=== PATIENT | male | born 1990 | race Caucasian/White ===

== ENCOUNTER 2020-09-28 17:28 | Emergency (ER) | payer OTHER, SELFPAY ==
--- NOTE | ~2020-09-28 | XR_ITS ---
EXAMINATION: XR SHOULDER, RIGHT CLINICAL INFORMATION: Right shoulder injury COMPARISON: None TECHNIQUE: AP external rotation, Grashey, scapular Y, and axillary views of the right shoulder. FINDINGS: Visualized portion of the proximal right humerus demonstrates no fracture. Humeral head demonstrates good articulation with the glenoid fossa. Acromioclavicular joint is unremarkable. Visualized right-sided ribs and lung parenchyma are unremarkable. Visualized right-sided ribs and lung parenchyma are unremarkable. XR/XR shoulder RT min 2V IMPRESSION: Unremarkable radiographs of the right shoulder.
--- NOTE | ~2020-09-28 | XR_ITS ---
EXAMINATION: XR TIBIA AND FIBULA, LEFT CLINICAL INFORMATION: Fall with trauma COMPARISON: None TECHNIQUE: AP and lateral views of the left tibia and fibula were obtained. FINDINGS: The bones and soft tissues are normal. No fracture. No osseous lesions. 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 XR/XR tibia fibula LT 2V IMPRESSION: Normal left tibia and fibula.
[2020-09-28 19:18] VITALS: BP 123/69; PULSE 72; RESP 16; TEMP 36.7; O2SAT 98; BMI 32.1
--- NOTE | 2020-09-28 19:50 | ED_ITS ---
HPI - Extremity Problem General Chief complaint: Extremity Injury, Upper Stated complaint: fall work inj Time Seen by Provider: 09/28/20 19:50 Source: patient Mode of arrival: ambulatory Limitations: no limitations History of Present Illness HPI Narrative: fell between truck and loading dock, fell 2 feet down injuring left leg and right shoulder Complaint: extremity pain and extremity swelling Onset (ago): hour(s) (10 hours) Pain Consistency: constant Location: left, right, upper extremity and lower extremity Radiation: none Relieving factors: nothing Associated symptoms: denies other symptoms Related Data Previous Rx's Medication Instructions Recorded naproxen [Naprosyn] 500 mg PO BID #20 tab 09/28/20 Allergies Allergy/AdvReac Type Severity Reaction Status Date / Time No Known Allergies Allergy Verified 09/28/20 19:38 Review of Systems Constitutional: Constitutional: Reports no additional constitutional complaints Eyes: Eyes: Reports no additional eye complaints ENT: Denies dizziness Cardiovascular: Cardiovascular: Reports no additional cardiovascular complaints Respiratory: Respiratory: Reports as per HPI Gastrointestinal: Gastrointestinal: Reports no additional gastrointestinal complaints Musculoskeletal: Musculoskeletal: Reports no additional musculoskeletal complaints Integumentary/Breasts: Skin/Breast: Denies rash Neurologic: Reports system reviewed and no additional complaints, except as documented, Denies dizziness and Denies Sensory deficit (Neuro) Psychiatric: Psychiatric: Denies anxiety PMFSH Past Medical History Medical History No known health problems Social History Social History Smoked in Last 30 Days: No Use of substances other than those prescribed or required for medical reasons: Yes Substance Use Type: Marijuana Advance Directives: No Advance Directives Information Provided: No Physical Exam 2 Vital Signs: Vital Signs: Last Vital Signs Temp 98.0 F 09/28/20 19:18 Pulse 72 09/28/20 19:18 Resp 16 09/28/20 19:18 BP 123/69 09/28/20 19:18 Pulse Ox 98 09/28/20 19:18 Body Mass Index 32.1 Const: General: healthy appearing Nutritional Appearance: average body habitus Orientation/consciousness: oriented to person and patient oriented x3 Limitations: no limitations HENMT: Head: Yes normal to inspection Ears: external ears normal General nose exam: Normal external nose present Mouth: Normal oral and palatal mucosa present and oropharynx normal Throat: Yes posterior oropharynx normal Eyes: General: appearance normal, both eyes and all related structures Neck: Other: supple Neck: Yes normal visual inspection Chest: Chest palpation & inspection: normal inspection of the chest Resp: Auscultation: clear to auscultation bilaterally Cardio: Jugular venous distension: no JVD Rate: regular rate Rhythm: regular rhythm Heart sounds: S1 normal heart sound present and S2 normal heart sound present GI: Inspection: Yes normal to inspection Palpation (GI): Soft to palpation, nontender and No hepatosplenomegaly present Auscultation: normal bowel sounds : General: Yes no CVA tenderness Back/Spine/Pelvis: Back: no CVA tenderness Skin: Other: abrasion and ecchymosis to left lower extremity Neuro: General: oriented to person and patient oriented x3 Cranial nerves: Yes CN's II-XII intact bilaterally Motor exam (neuro): 5/5 motor strength present throughout Sensory Exam: No Sensory deficit (Neuro) Extrem: Other: right shoulder with no deformity, clavicle normal, FROM. left lower tibia with swelling ecchymosis Psych: Appearance: grossly normal Course Course Course Narrative: no fractures no evidence of compartment syndrome will dc on NSAIDS MDM - Extremity (Nontraumatic) Imaging Data right shoulder: Radiologist's impression: no fracture or dislocation left tibia: My impression: no fracture Discharge Plan Discharge Clinical Impression: Shoulder contusion Qualifiers: Encounter type: initial encounter Laterality: right Qualified Code(s): S40.011A - Contusion of right shoulder, initial encounter Left leg injury Qualifiers: Encounter type: initial encounter Qualified Code(s): S89.92XA - Unspecified injury of left lower leg, initial encounter Patient Disposition: Home, Self-Care Instructions: Shoulder Sprain (ED), Leg Pain (ED) Additional Instructions: ice 20 minutes off and on Prescriptions: New naproxen [Naprosyn] 500 mg tablet 500 mg PO BID Qty: 20 RF: 0 Referrals: Physician,None [Primary Care Provider] - 1 week
== END 2020-09-28 20:29 | disposition home or self-care (01) ==
PROVIDERS: Emergency Provider Emergency Medicine
DX: S40.011A Contusion of right shoulder, initial encounter (principal); S89.92XA Unspecified injury of left lower leg, initial encounter; W17.89XA Other fall from one level to another, initial encounter; Y93.9 Activity, unspecified; Y92.9 Unspecified place or not applicable; Y99.9 Unspecified external cause status
CPT/HCPCS: 73030; 73590; 99283; 99284

== ENCOUNTER 2021-06-26 15:28 | Emergency (ER) | payer SELFPAY ==
--- NOTE | ~2021-06-26 | CT_ITS ---
EXAMINATION: CT ABDOMEN AND PELVIS WITH CONTRAST CLINICAL INFORMATION: Bright red rectal bleeding. COMPARISON: None. TECHNIQUE: Multidetector volumetric images were obtained from the superior aspect of the liver through the pubic symphysis following administration 85 mL of Omnipaque 350 intravenous contrast. Sagittal and coronal reformatted images were obtained on the technologist's workstation. Oral contrast: No This CT examination was performed using dose optimization techniques as appropriate, variously including the following: *Automated exposure control *Adjustment of mA and/or kV according to patient size (this includes techniques or standardized protocols for targeted exams where dose is matched to indication/reason for exam; i.e. extremities or head) *Use of iterative reconstruction technique DLP: 745 mGy-cm FINDINGS: LUNG BASES: No focal consolidation or pleural effusion. Evaluation of small pulmonary nodules is limited due to motion. LIVER, GALLBLADDER, AND BILIARY TREE: The liver is normal in size, shape, and attenuation. No focal hepatic lesion or biliary ductal dilatation is present. The gallbladder is unremarkable with no evidence of radiopaque gallstones, gallbladder wall thickening, or obvious pericholecystic inflammatory changes. PANCREAS: Unremarkable. SPLEEN: Unremarkable. ADRENAL GLANDS: Unremarkable. KIDNEYS AND URETERS: The kidneys are normal in size, shape, and attenuation. No hydronephrosis, hydroureter, or calculi seen. No perinephric stranding. BLADDER: Unremarkable. GASTROINTESTINAL TRACT: The stomach and the small bowel are nondilated. There is mild submucosal fatty deposition in the distal ileum, terminal ileum and ascending colon suggesting the presence of a chronic inflammatory process. There is however, no current significant associated inflammatory changes to suspect an acute process. The majority of the colon is underdistended which limits assessment of wall thickening and GI bleeding. However, accounting for these limitations, no definite pooling of contrast is identified to suspect an active bleeding. A few areas of hyperattenuating content in the colon and within a few diverticuli are nonspecific in the absence of a noncontrast examination and could represent ingested debris. No bowel obstruction. Diffuse colonic diverticulosis. Normal appendix. ABDOMINAL WALL: No significant hernia is appreciated. LYMPH NODES: Normal. VASCULAR: Unremarkable. PELVIC VISCERA: Nonspecific prostatic calcifications. OSSEOUS STRUCTURES: No acute or aggressive appearing osseous abnormalities. CT/CT abdomen pelvis w con IMPRESSION: No definite gastrointestinal bleeding. However, evaluation is limited as the majority of the colon and rectum are underdistended and in the absence of a dry scan. If indicated, correlation with a colonoscopy is recommended. Colonic diverticulosis but without evidence of acute diverticulitis. Submucosal fatty deposition in the distal ileum, terminal ileum and ascending colon is nonspecific and could be associated with the patient body habitus or a chronic inflammatory process.
[2021-06-26 15:53] VITALS: BP 156/74; PULSE 75; RESP 19; TEMP 36.6; O2SAT 98; BMI 32.8
[2021-06-26 16:08] LABS: MANUAL DIFF FLAG NO
[2021-06-26 16:18] LABS: Basophils Absolute Auto 0.1 X10*3/uL (0.0-0.2); Basophils Percent Auto 0.6 % (0-2); Eosinophils Absolute Auto 0.1 X10*3/uL (0.0-0.4); Eosinophils Percent Auto 1.2 % (0-4); Hematocrit 44.1 % (42.0-52.0); Hemoglobin 14.9 g/dl (14.0-18.0); Imm Gran Abs Auto 0.03 X10*3/uL (0.00-0.03); Imm Gran Pct Auto 0.4 % (0.0-0.4); Lymphocytes Absolute Auto 2.4 X10*3/uL (1.2-4.9); Lymphocytes Percent Auto 29.2 % (20-40); Mean Corpuscular HGB Conc 33.8 g/dl (31.0-36.0); Mean Corpuscular Hemoglobin 26.9 pg (27.0-33.0); Mean Corpuscular Volume 79.6 fL (80.0-98.0); Mean Platelet Volume 9.5 fL (9.4-12.4); Monocytes Absolute Auto 0.5 X10*3/uL (0.1-1.2); Monocytes Percent Auto 6.4 % (2-11); Neutrophils Percent Auto 62.2 % (45-73); Platelet Count 279 X10*3/uL (160-400); Red Blood Count 5.54 X10*6/uL (4.60-5.80); White Blood Count 8.1 X10*3/uL (4.8-10.8)
[2021-06-26 16:26] LABS: Anion Gap 11 (12-20); Blood Urea Nitrogen 13 mg/dL (9-16); Carbon Dioxide 29 mmol/L (22-29); Chloride 103 mmol/L (96-108); Creatinine Clr Calc Pharmacy 150.7; Estimated Glomerular Filt Rate > 60; Glucose Random 99 mg/dL (60-115); Sodium 139 mmol/L (135-145)
--- NOTE | 2021-06-26 18:02 | ED_ITS ---
HPI - GI Bleed General Chief complaint: GI Bleed <Elvie Hull CNP - Last Filed: 06/26/21 18:43> Stated complaint: Rectal bleeding <Elvie Hull CNP - Last Filed: 06/26/21 18:43> Time Seen by Provider: 06/26/21 17:39 <Elvie Hull CNP - Last Filed: 06/26/21 18:43> Source: patient <Elvie Basiajillian Hull CNP - Last Filed: 06/26/21 18:43> Mode of arrival: ambulatory <Elvie Hull CNP - Last Filed: 06/26/21 18:43> Limitations: no limitations <Elvie Hull CNP - Last Filed: 06/26/21 18:43> History of Present Illness HPI Narrative: Patient is a 31-year-old male with no significant past medical history. He reports a few days noting painless bright red blood on the toilet tissue after wiping, and small amount of blood in the toilet bowl. He denies this ever happening in the past. Denies any history of hemorrhoids, IBS, IBD, personal or family history of colon cancer, blood thinning medication. Denies fevers, chills, nausea, vomiting, abdominal pain, dysuria urinary frequency/urgency of the. Denies rectal intercourse or insertion of objects into the rectum. <Elvie Hull CNP - Last Filed: 06/26/21 18:43> MD complaint: blood on toilet paper <Elvie Hull CNP - Last Filed: 06/26/21 18:43> Onset (ago): day(s) <Elvie Hull CNP - Last Filed: 06/26/21 18:43> Pain Consistency: intermittent <Elvie Hull CNP - Last Filed: 06/26/21 18:43> Related Data Home medications: Previous Rx's Medication Instructions Recorded naproxen 500 mg tablet (Naprosyn) 500 mg PO BID #20 tab 09/28/20 pramoxine 1 % topical foam 1 appl AK BID #15 g 06/26/21 (Proctofoam) <Elvie Hull CNP - Last Filed: 06/26/21 18:43> Allergies/Adverse reactions: Allergies Allergy/AdvReac Type Severity Reaction Status Date / Time No Known Allergies Allergy Verified 09/28/20 19:38 <Elvie Hull CNP - Last Filed: 06/26/21 18:43> Review of Systems Review of Systems: Constitutional : No Weight loss, No Fever, No Chills ENT/Mouth :? No sore throat, No Rhinorrhea Eyes: No Swelling, No Redness Cardiovascular : No Chest Pain, No SOB, No Edema Respiratory : No Cough, No Sputum, No Wheezing Gastrointestinal : No Nausea, no Vomiting, no Diarrhea, no abdominal pain, No Hematochezia, No Melena Genitourinary : No Dysuria, No Urinary Frequency, No Hematuria, No Urgency? Musculoskeletal : No joint pain, No Myalgias, No Joint Swelling Skin : No Skin Lesions, No rash Neuro : No Weakness, No Numbness, No Dizziness, No Headache Psych : No Anxiety/Panic, No Depression Heme/Lymph: No Bruising, No Lymphadenopathy Endocrine : No Polyuria, No Polydipsia All other systems reviewed and are negative. <Elvie Hull CNP - Last Filed: 06/26/21 18:43> PMFSH Past Medical History Attestation statement: The following information was validated with the patient. <Elvie Hull CNP - Last Filed: 06/26/21 18:43> Source: old records reviewed <Elvie Hull CNP - Last Filed: 06/26/21 18:43> Medical History: Medical History No known health problems <Elvie Hull CNP - Last Filed: 06/26/21 18:43> Social History Social History: Social History Substance Use Type: Marijuana Advance Directives: No Advance Directives Information Provided: No <Elvie Hull CNP - Last Filed: 06/26/21 18:43> Physical Exam Vital Signs: Vital Signs: Last Vital Signs Temp 98 F 06/26/21 15:53 Pulse 75 06/26/21 15:53 Resp 19 06/26/21 15:53 BP 156/74 H 06/26/21 15:53 Pulse Ox 98 06/26/21 15:53 BMI result Body Mass Index 32.8 Vital signs have been reviewed and appeared to be correct. Blood pressure is elevated 156/74. Heart rate normal.? Respiration rate normal. Temperature chris l.? Oxygen saturation normal. <Elvie Hull CNP - Last Filed: 06/26/21 18:43> Vital Signs: Last Vital Signs Temp 98 F 06/26/21 15:53 Pulse 75 06/26/21 15:53 Resp 19 06/26/21 15:53 BP 156/74 H 06/26/21 15:53 Pulse Ox 98 06/26/21 15:53 BMI result Body Mass Index 32.8 <AMERICO Garcia - Last Filed: 06/26/21 19:44> Appearance: Alert.?Oriented to person, place and time. No acute distress.?Normal affect. Eyes: Pupils equal, round and reactive to light.? ENT: Pharynx normal.?? Neck: Normal inspection.? Neck supple.?? CVS: Heart sounds normal. Normal heart rate and rhythm.? Pulses normal.?? Respiratory: No respiratory distress.? Lung sounds clear to auscultation bilaterally?? Abdomen: Soft and non-tender. Normoactive bowel sounds. No pulsatile mass.? Rectum: ?Rectal exam performed with NICOL Dick, no external hemorrhoids visualized, no fissure, no palpable internal hemorrhoids, no stool in the rectum to obtain for occult testing. Skin: Skin warm and dry.? Normal skin color.? Normal skin turgor.?? Extremities: No lower extremity edema.? Neuro: Moves all extremities spontaneously. Sensation intact bilaterally. CN II- XII intact. No focal neuro deficits. Ambulates with normal steady gait. <Elvie Hull CNP - Last Filed: 06/26/21 18:43> Course Course Course Narrative: Patient is a 31-year-old male with painless bright red blood per rectum. Patient has no abdominal pain, or peritoneal signs, not consistent with appendicitis, diverticulitis, testicular torsion, enteric ischemia, hernia, instruction. Given rectal bleeding of GI perforation lower GI bleed are possible, as there are no hemorrhoids or fissures on exam, will obtain CT of the abdomen for further evaluation. He had labs obtained in triage reveal a stable hemoglobin and hematocrit of 14.9 and 44.1 respectively, platelet counts are normal. Chemistries are normal. <Elvie Hull CNP - Last Filed: 06/26/21 18:43> Reevaluation(s) Reevaluation #1: Patient signed out to Julia DRISCOLL, pending results of abdominal CT. <Elvie Hull CNP - Last Filed: 06/26/21 18:43> Reevaluation #2: Patient's abdominal CT with no acute findings unable to pinpoint reason for patient's GI bleeding. Other finding this includes diverticulosis, and subm ucosal fatty deposition in the distal ileum, terminal ileum and ascending colon. Advised patient to follow-up with GI. Return with new or worsening symptoms. Outlined worrisome signs and symptoms on patient's discharge. Comfortable with discharge <AMERICO Garcia - Last Filed: 06/26/21 19:44> MDM - GI Bleed Medical Records Attestation: I reviewed the patient's medical records. <Elvie Hull CNP - Last Filed: 06/26/21 18:43> Lab Data Attestation: I reviewed the patient's lab results. <Elvie Hull CNP - Last Filed: 06/26/21 18:43> Result diagrams: : 06/26/21 16:01 06/26/21 16:01 <Elvie Hull CNP - Last Filed: 06/26/21 18:43> Labs: Lab Results 06/26/21 06/26/21 Range/Units 16:01 16:01 WBC 8.1 (4.8-10.8) X10*3/uL RBC 5.54 (4.60-5.80) X10*6/uL Hgb 14.9 (14.0-18.0) g/dl Hct 44.1 (42.0-52.0) % MCV 79.6 L (80.0-98.0) fL MCH 26.9 L (27.0-33.0) pg MCHC 33.8 (31.0-36.0) g/dl RDW 13.0 (11.0-16.0) % Plt Count 279 (160-400) X10*3/uL MPV 9.5 (9.4-12.4) fL Immature Gran % (Auto) 0.4 (0.0-0.4) % Neut % (Auto) 62.2 (45-73) % Lymph % (Auto) 29.2 (20-40) % Reynolds % (Auto) 6.4 (2-11) % Eos % (Auto) 1.2 (0-4) % Baso % (Auto) 0.6 (0-2) % Lymph # (Auto) 2.4 (1.2-4.9) X10*3/uL Reynolds # (Auto) 0.5 (0.1-1.2) X10*3/uL Eos # (Auto) 0.1 (0.0-0.4) X10*3/uL Baso # (Auto) 0.1 (0.0-0.2) X10*3/uL Abs Immat Gran (auto) 0.03 (0.00-0.03) X10*3/uL Absolute Neuts (auto) 5.0 (2.0-8.3) x10*3/uL Absolute Nucleated RBC 0.000 (0.0-0.012) X10*3/uL Nucleated RBC % (auto) 0.0 (0.0-0.2) /100WBC Sodium 139 (135-145) mmol/L Potassium 4.0 (3.3-5.1) mmol/L Chloride 103 (96-108) mmol/L Carbon Dioxide 29 (22-29) mmol/L Anion Gap 11 L (12-20) BUN 13 (9-16) mg/dL Creatinine 0.89 (0.5-1.4) mg/dL Estim Creat Clear Calc 150.7 Estimated GFR > 60 Random Glucose 99 (60-115) mg/dL Calcium 10.0 (8.4-10.2) mg/dL <Elvie Hull, IHSAN - Last Filed: 06/26/21 18:43> Lab Results 06/26/21 06/26/21 Range/Units 16:01 16:01 WBC 8.1 (4.8-10.8) X10*3/uL RBC 5.54 (4.60-5.80) X10*6/uL Hgb 14.9 (14.0-18.0) g/dl Hct 44.1 (42.0-52.0) % MCV 79.6 L (80.0-98.0) fL MCH 26.9 L (27.0-33.0) pg MCHC 33.8 (31.0-36.0) g/dl RDW 13.0 (11.0-16.0) % Plt Count 279 (160-400) X10*3/uL MPV 9.5 (9.4-12.4) fL Immature Gran % (Auto) 0.4 (0.0-0.4) % Neut % (Auto) 62.2 (45-73) % Lymph % (Auto) 29.2 (20-40) % Reynolds % (Auto) 6.4 (2-11) % Eos % (Auto) 1.2 (0-4) % Baso % (Auto) 0.6 (0-2) % Lymph # (Auto) 2.4 (1.2-4.9) X10*3/uL Reynolds # (Auto) 0.5 (0.1-1.2) X10*3/uL Eos # (Auto) 0.1 (0.0-0.4) X10*3/uL Baso # (Auto) 0.1 (0.0-0.2) X10*3/uL Abs Immat Gran (auto) 0.03 (0.00-0.03) X10*3/uL Absolute Neuts (auto) 5.0 (2.0-8.3) x10*3/uL Absolute Nucleated RBC 0.000 (0.0-0.012) X10*3/uL Nucleated RBC % (auto) 0.0 (0.0-0.2) /100WBC Sodium 139 (135-145) mmol/L Potassium 4.0 (3.3-5.1) mmol/L Chloride 103 (96-108) mmol/L Carbon Dioxide 29 (22-29) mmol/L Anion Gap 11 L (12-20) BUN 13 (9-16) mg/dL Creatinine 0.89 (0.5-1.4) mg/dL Estim Creat Clear Calc 150.7 Estimated GFR > 60 Random Glucose 99 (60-115) mg/dL Calcium 10.0 (8.4-10.2) mg/dL <AMERICO Garcia - Last Filed: 06/26/21 19:44> Discharge Plan Discharge Clinical Impression: Bright red rectal bleeding, Diverticulosis <Elvie Hull CNP - Last Filed: 06/26/21 18:43> Patient Disposition: Home, Self-Care <Elvie Hull CNP - Last Filed: 06/26/21 18:43> Instructions: Gastrointestinal Bleeding (ED), Rectal Bleeding (ED) <Elvie Hull CNP - Last Filed: 06/26/21 18:43> Additional Instructions: Take your medications as prescribed. If you were prescribed antibiotics t [place], it is important that you take your medication to their entirety, do not skip any doses, do not finish them early. Follow-up with your primary care provider this week. Follow-up with GI. Return to the emergency department with new or worsening symptoms. Such as fevers, chills, chest pain, shortness of breath, nausea, vomiting, dizziness, headache, vision changes, lethargy, worsening rectal bleeding or hemorrhaging In case of emergency call 911 Your labs are reassuring CT/CT abdomen pelvis w con IMPRESSION: No definite gastrointestinal bleeding. However, evaluation is limited as the majority of the colon and rectum are underdistended and in the absence of a dry scan. If indicated, correlation with a colonoscopy is recommended. ? Colonic diverticulosis but without evidence of acute diverticulitis. ? Submucosal fatty deposition in the distal ileum, terminal ileum and ascending colon is nonspecific and could be associated with the patient body habitus or a chronic inflammatory process. ? ? <Elvie Hull CNP - Last Filed: 06/26/21 18:43> Prescriptions: New pramoxine [Proctofoam] 1 % foam 1 appl [place] BID Qty: 15 0RF No Action naproxen [Naprosyn] 500 mg tablet 500 mg PO BID Qty: 20 0RF <Elvie Hull CNP - Last Filed: 06/26/21 18:43> Referrals: Aries Soto [Physician] - 1 week Physician,None [Primary Care Provider] - 2 days <Elvie Hull CNP - Last Filed: 06/26/21 18:43> Stand Alone Forms: Work/School Release <Elvie Hull CNP - Last Filed: 06/26/21 18:43>
[2021-06-26] MEDS: iohexoL 350 MG/ML 100 ML INFUS..BTL IV (19:01)
== END 2021-06-26 20:48 | disposition home or self-care (01) ==
PROVIDERS: Emergency Provider Emergency Medicine
DX: K62.5 Hemorrhage of anus and rectum (principal); K57.90 Diverticulosis of intestine, part unspecified, without perforation or abscess without bleeding
CPT/HCPCS: 36415; 74177; 80048; 85025; 99284; Q9967

== ENCOUNTER 2022-03-10 08:31 | Outpatient (REF) | payer BC, SELFPAY ==
[2022-03-10 11:09] LABS: MANUAL DIFF FLAG NO
[2022-03-10 11:15] LABS: Basophils Percent Auto 0.4 % (0-2); Eosinophils Absolute Auto 0.1 X10*3/uL (0.0-0.4); Eosinophils Percent Auto 1.4 % (0-4); Hematocrit 46.3 % (42.0-52.0); Hemoglobin 15.2 g/dl (14.0-18.0); Imm Gran Abs Auto 0.06 X10*3/uL (0.00-0.03); Imm Gran Pct Auto 0.8 % (0.0-0.4); Lymphocytes Absolute Auto 2.4 X10*3/uL (1.2-4.9); Lymphocytes Percent Auto 32.4 % (20-40); Mean Corpuscular HGB Conc 32.8 g/dl (31.0-36.0); Mean Corpuscular Hemoglobin 26.5 pg (27.0-33.0); Mean Corpuscular Volume 80.8 fL (80.0-98.0); Mean Platelet Volume 10.3 fL (9.4-12.4); Monocytes Absolute Auto 0.6 X10*3/uL (0.1-1.2); Monocytes Percent Auto 7.6 % (2-11); Neutrophils Absolute Auto 4.2 x10*3/uL (2.0-8.3); Neutrophils Percent Auto 57.4 % (45-73); Platelet Count 317 X10*3/uL (160-400); Red Blood Count 5.73 X10*6/uL (4.60-5.80); Red Cell Distribution Width 12.9 % (11.0-16.0); White Blood Count 7.3 X10*3/uL (4.8-10.8)
[2022-03-10 11:27] LABS: Appearance Urine Clear; Color Urine Yellow; Glucose Urine UA Negative (Negative); Leukocyte Esterase Urine Negative (Negative); Nitrite Urine Negative (Negative); PH 5.5 (5.0-9.0); Specific Gravity - Urine 1.025 (1.005-1.025); Urine Blood Negative (Negative); Urine Ketones Negative (Negative); Urine Protein Negative (Neg-Trace)
[2022-03-10 11:35] LABS: Alanine Aminotransferase 38 U/L (0-40); Albumin Level 4.5 g/dL (3.5-5.0); Alkaline Phosphatase 82 U/L (39-117); Anion Gap 16 (12-20); Aspartate Amino Transferase 21 U/L (5-37); Bilirubin Total 0.5 mg/dL (0.0-1.0); Blood Urea Nitrogen 11 mg/dL (9-16); Calcium 9.5 mg/dL (8.4-10.2); Carbon Dioxide 25 mmol/L (22-29); Chloride 105 mmol/L (96-108); Cholesterol 159 mg/dL; Estimated Glomerular Filt Rate > 60; Glucose Fasting 97 mg/dL (60-99); HDL Cholesterol 49 mg/dL; LDL Cholesterol Calculated 94 mg/dl; Potassium 4.5 mmol/L (3.3-5.1); Sodium 141 mmol/L (135-145); Total Protein 7.4 g/dL (6.5-8.0); Triglycerides 81 mg/dL
[2022-03-10 11:59] LABS: TSH reflex Free T4 0.83 uIU/mL (0.32-4.0)
== END 2022-03-10 08:32 | disposition home or self-care (01) ==
LOC: HO.HMGCLDS 08:31
PROVIDERS: PCP Nurse Practitioner Family; Visit Provider Nurse Practitioner Family
DX: Z00.00 Encounter for general adult medical examination without abnormal findings (principal)
CPT/HCPCS: 36415; 80053; 80061; 81003; 84443; 85025

== ENCOUNTER 2023-05-06 15:16 | Outpatient (AMB) | payer BC, SELFPAY ==
[2023-05-06 15:18] VITALS: BP 126/74; PULSE 78; TEMP 37.2; O2SAT 99
--- NOTE | 2023-05-06 15:18 | MHC.OFFWIV ---
Intake Vital Signs 05/06/23 15:18 Height 5 ft 11 in BP 126/74 Blood Pressure Location Rt brachial Position Sitting Pulse 78 Pulse Source Pulse Oximeter Temp 98.9 F Temp Source Oral Pulse Oximetry (%) 99 Intake Visit Reasons: EST/abd cramps (lobby masked) Intake Note: pt is here for c.o abd pain,cramping, diarrhea since saturday Patient Tobacco Use Status: Current everyday Tobacco user Allergies sertraline Adverse Reaction (Intermediate, Verified 05/06/23 15:19) Drowsy Do you need a note to return to daycare/school/sports/work: Yes HPI HPI Comments History of Present Illness Details Patient presents to the walkin clinic with complaints of diarrhea for 3 days, abdominal cramping for 3 days Diarrhea started after patient ate a breakfast sandwich from a gas station Patient reports cramping of abdomen for last 3 days Vomited once yesterday after eating, states thinks he ate too much ate soup today and tolerated well has been keeping fluids down, voiding without difficulty reports watery diarrhea, about 4 times daily denies blood in stool, urine or vomit denies sharp, stabbing or severe abd pain. cramping and some tenderness without pinpoint tenderness denies chest pain, palpitations, weakness, dizziness or syncope PFSH Medical History No known health problems Social History Housing: Apartment Patient Tobacco Use Status: Current everyday Tobacco user Cigarettes Per Day: 15 e-Cigarette/Vaping Use: Never Used Second Hand Smoke Exposure: No Substance Use Type: Marijuana service: No Current occupational status: employed Current occupation: [employer] Current occupational exposures/hazards: No Cognitive needs: No Hearing needs: No Vision needs: No Review of Systems Const All systems reviewed & are unremarkable except as noted in HPI and below Physical Exam Vital Signs: Last Vital Signs Temp 98.9 F 05/06/23 15:18 Pulse 78 05/06/23 15:18 BP 126/74 05/06/23 15:18 Pulse Ox 99 05/06/23 15:18 General: awake, alert, oriented. Answers questions appropriately. Fully engaged in examination. Skin: warm, dry, intact HEENT: Normocephalic. Hearing intact. oral mucosa moist Cardiac: External chest normal in appearance. Respiratory: No cough, audible wheezing or stridor. Abdomen: without gross distension. no guarding. nontender to palpation in all quadrants MS: No obvious swelling or deformities. Neurological: Oriented to person, place, time and situation. Thought process intact. No gait abnormalities appreciated. Psychiatric: Appropriate mood and affect. Good judgment and insight. Assessment & Plan Assessment & Plan (1) Diarrhea: Code(s): R19.7 - Diarrhea, unspecified (2) Abdominal cramping: Code(s): R10.9 - Unspecified abdominal pain Plan patient presented to the walkin for 3 days of diarrhea with abd cramping denies acute abdominal pain or pinpoint tenderness. Tolerating po fluids and light meals. Simethicone 180mg po bid for abd discomfort/bloating Advised to drink plenty of fluids, advance diet as tolerated Avoid antidiarrhea medications at this time Patient declines nausea medications Work note provided Patient advised to seek treatment in ER for any worse or concerning symptoms. May need further eval with imaging/CT/US, IV fluids or medications if symptoms persist or worsen. He is not interested in going to the ER now but agrees to seek emergent treatment if needed. All questions and concerns were addressed, patient agrees with plan. Medications: New simethicone 180 mg PO BID PRN 14 caps 0RF abdominal distention Coding Level of Care Code Est Pt Level 4 (40783) Diagnoses Diarrhea R19.7 Abdominal cramping R10.9
== END 2023-05-06 16:18 | disposition home or self-care (01) ==
PROVIDERS: PCP Nurse Practitioner Family; Visit Provider Registered Nurse Emergency
DX: R19.7 Diarrhea, unspecified (principal); R10.9 Unspecified abdominal pain
CPT/HCPCS: 99213

== ENCOUNTER 2023-05-07 08:43 | Observation (INO) | payer BC, SELFPAY ==
--- NOTE | ~2023-05-07 | CT_ITS ---
EXAMINATION: CT ABDOMEN AND PELVIS WITH CONTRAST CLINICAL INFORMATION: Dilated mid and distal small bowel loops. COMPARISON: None available. TECHNIQUE: Multidetector volumetric images were obtained from the superior aspect of the liver through the pubic symphysis following administration 85 mL of Omnipaque 350 intravenous contrast. Oral contrast was administered just before patient was placed supine and scanned. Sagittal and coronal reformatted images were obtained on the technologist's workstation. Oral contrast: No This CT examination was performed using dose optimization techniques as appropriate, variously including the following: *Automated exposure control *Adjustment of mA and/or kV according to patient size (this includes techniques or standardized protocols for targeted exams where dose is matched to indication/reason for exam; i.e. extremities or head) *Use of iterative reconstruction technique DLP: 772 mGy-cm FINDINGS: LUNG BASES: The visualized lung bases are unremarkable. LIVER, GALLBLADDER, AND BILIARY TREE: The liver is normal in size, shape, and attenuation. No focal hepatic lesion or biliary ductal dilatation is present. The gallbladder is unremarkable with no evidence of radiopaque gallstones, gallbladder wall thickening, or obvious pericholecystic inflammatory changes. PANCREAS: Unremarkable. SPLEEN: Unremarkable. ADRENAL GLANDS: Unremarkable. KIDNEYS AND URETERS: The kidneys are normal in size, shape, and attenuation. No hydronephrosis, hydroureter, or calculi seen. No perinephric stranding. BLADDER: Unremarkable. GASTROINTESTINAL TRACT: There are multiple dilated proximal and mid small bowel loops extending to the midabdomen where there is diffuse mural thickening involving small bowel segments better visualized on early exam without contrast. Also visualized in the present exam on axial CT imaging 57/3 through 69/3. The findings are suspicious for small bowel enteritis. Mild thickening of the distal ileum is also noted. There is minimal fat stranding and fluid collection in the mesentery. Fluid is best visualized on axial image 61/3. There is minimal gas in proximal which with small air-fluid level within the descending and sigmoid colon Appendix is normal caliber. No free air seen. The stomach is nondistended. ABDOMINAL WALL: No significant hernia is appreciated. LYMPH NODES: There are multiple mesenteric lymph nodes largest measuring 8mm. It is best visualized on axial image 44/3. VASCULAR: Unremarkable. PELVIC VISCERA: There is nonspecific air-fluid level within the sigmoid and descending colon likely reactionary changes to small bowel obstruction. There is minimal free fluid. No abnormal pelvic lymph nodes or hernia seen. The prostate gland is normal. OSSEOUS STRUCTURES: No aggressive lytic or sclerotic process seen. CT/CT abdomen pelvis w IV con IMPRESSION: Multiple dilated proximal and mid small bowel loops into the midabdomen with mural thickening involving some of nonopacified loops with mild fat stranding and small fluid collection in the mesentery. The above findings are suggestive of small bowel enteritis resulting in obstruction. No free air seen. There are multiple mesenteric lymph nodes largest measuring 8mm. Fleischner guidelines were followed.
--- NOTE | ~2023-05-07 | XR_ITS ---
EXAMINATION: XR ABDOMEN KUB CLINICAL INDICATION: Reevaluate small bowel obstruction. COMPARISON: CT abdomen 05/07/2023 TECHNIQUE: AP view of the abdomen. FINDINGS: Previously seen oral contrast in the proximal and mid small bowel loops on CT abdomen exam 05/07/2023 appears to have traversed into the left colon likely partial obstruction. There is however prominent and mildly dilated small bowel loops slightly improved from previous CT exam. The colon is nondistended. No organomegaly. No radiopaque calculi. No gross bony abnormality. XR/XR KUB IMPRESSION: Improved small bowel distention noted with less prominent small bowel loops in midabdomen compared to previous CT abdomen pelvis exam. There is oral contrast in the descending colon suggestive of partial small bowel obstruction.
--- NOTE | ~2023-05-07 | CT_ITS ---
EXAMINATION: CT ABDOMEN AND PELVIS WITH CONTRAST CLINICAL INFORMATION: Abdominal pain COMPARISON: CT abdomen pelvis June 26, 2021 TECHNIQUE: Multidetector volumetric images were obtained from the superior aspect of the liver through the pubic symphysis following administration 85 mL of Omnipaque 350 intravenous contrast. Sagittal and coronal reformatted images were obtained on the technologist's workstation. Oral contrast: No This CT examination was performed using dose optimization techniques as appropriate, variously including the following: *Automated exposure control *Adjustment of mA and/or kV according to patient size (this includes techniques or standardized protocols for targeted exams where dose is matched to indication/reason for exam; i.e. extremities or head) *Use of iterative reconstruction technique DLP: 746 mGy-cm FINDINGS: Visualized lung bases are well aerated. The liver is normal in size. The gallbladder is normal in appearance. The pancreas, spleen and adrenal glands are unremarkable. Symmetrically enhancing kidneys. No hydronephrosis of either kidney. The stomach is relatively decompressed. Loops of small bowel demonstrate mild diffuse dilatation with diffuse circumferential mucosal thickening involving the mid and distal small bowel. There are scattered air-fluid levels noted within small bowel. Small bowel measures up to 4.2 cm in maximum dimension. Distal small bowel demonstrates circumferential wall thickening but is not dilated. A well-defined transition zone is not identified. The colon is normal in caliber demonstrating a normal amount of stool and air. There is mild colonic diverticulosis without CT evidence to suggest active diverticulitis. There is a mild amount of free intra-abdominal fluid with a small amount of free fluid also noted within the pelvis. Normal caliber abdominal aorta. No retroperitoneal lymphadenopathy. The bladder is normal in appearance. The prostate gland is normal in size. No inguinal lymphadenopathy. No acute osseous abnormality. CT/CT abdomen pelvis w IV con IMPRESSION: 1. Diffuse dilatation of the mid and distal small bowel with diffuse circumferential mucosal thickening. A well-defined transition zone is not identified. There is a mild amount of free intra-abdominal fluid. Findings may be secondary to an inflammatory process of distal small bowel resulting in a partial small bowel obstruction. An infectious process is also within the differential. Clinical correlation is recommended. 2. Mild colonic diverticulosis without CT evidence to suggest active diverticulitis. Fleischner guidelines were followed.
[2023-05-07 08:47] VITALS: BP 137/73; PULSE 93; RESP 20; TEMP 36.1; O2SAT 96; BMI 31.1
--- NOTE | 2023-05-07 08:54 | ED.GENADULT ---
HPI - General Adult General Chief complaint: Abdominal Pain Stated complaint: Abdominal pain Time Seen by Provider: 05/07/23 08:54 Source: patient Mode of arrival: ambulatory Limitations: no limitations History of Present Illness HPI narrative: 33 year-old assigned male at with no past medical history presents to emergency department with abdominal pain and diarrhea. The patient states that his pain has been occurring since Saturday on 05/03/2023. He reports that the worst of his abdominal pain occurred on Saturday05/05/2023 when he had an episode of vomiting immediately after eating. Patient states that the food felt like it sat at the base of his throat and then he immediately threw up. He describes the pain as crampy and constant which is worsened by standing and relieved by laying down on his back. When asked to point to the pain, he gestured toward his epigastric and periumbilical region. He saw an urgent care provider yesterday 05/06/2023 where the provider gave him GasX for his abdominal pain and he was told to come to the emergency department if his pain and discomfort does not improve. He reports he has 3-5 episodes of watery stool with no formed portions of it since 05/03/2023. His last episode was this morning on 05/07/2023. He states he can only tolerate water and pedialyte and has been unable to eat since Saturday05/05/2023. He denies sick contacts and states he recently traveled to [facility] on Saturday on 05/03/2023. He denies fever, night sweats, loss of vision, changes in vision, blurry vision, double vision, lightheadedness, dizziness, chest pain, palpitations, shortness of breath, trouble breathing, melena and hematochezia, burning urination, urinary frequency, and changes in urination. Onset (ago): day(s) (4 days, since Saturday05/03/2023) Location: abdomen Radiation: non-radiation Quality: other (cramping) Pain Consistency: constant Relieving factors: other (supine position) Exacerbating factors: other (standing ) Associated symptoms: loss of appetite and nausea/vomiting Treatments prior to arrival: other (GasX given by Urgent Care) Related Data Home Medications Medication Instructions Recorded Confirmed No Known Home Meds 05/07/23 05/07/23 Allergies Allergy/AdvReac Type Severity Reaction Status Date / Time sertraline AdvReac Intermediate Drowsy Verified 05/06/23 15:19 Review of Systems Constitutional: Constitutional: Reports no additional constitutional complaints, Denies chills, Denies fever(s) and Denies night sweats Eyes: Eyes: Reports no additional eye complaints, Denies blurry vision, Denies change in vision, Denies diplopia, Denies eye discharge, Denies loss of vision and Denies eye pain ENT: Denies dizziness Cardiovascular: Cardiovascular: Reports no additional cardiovascular complaints, Denies chest pain, Denies lightheadedness, Denies Loss of Consciousness and Denies dyspnea Respiratory: Respiratory: Reports no additional respiratory complaints and Denies dyspnea Gastrointestinal: Gastrointestinal: Reports no additional gastrointestinal complaints, Reports abdominal pain, Denies melena, Denies hematochezia, Reports change in bowel habits, Reports change in stool character, Reports nausea and Reports vomiting Comments: watery stools Genitourinary: Genitourinary: Reports no additional male genitourinary complaints, Denies hematuria, Denies oliguria, Denies difficulty urinating, Denies dysuria, Denies urinary frequency, Denies urinary hesitancy, Denies urinary incontinence and Denies urinary urgency Musculoskeletal: Musculoskeletal: Reports no additional musculoskeletal complaints, Denies numbness and Denies tingling Neurologic: Denies dizziness, Denies loss of vision, Denies numbness and Denies tingling Psychiatric: Psychiatric: Reports no additional psychiatric complaints Endocrine: Endocrine: Reports no additional endocrine complaints Hematologic/Lymphatic: Hematologic/Lymphatic: Reports no additional hematologic/lymphatic complaints Allergic/Immunologic: Allergic/Immunologic: Reports no additional allergic/immunologic complaints PMFSH Past Medical History Attestation statement: The following information was validated with the patient. Source: old records reviewed and nursing notes reviewed Onset Date is defined in the Problem List Problems that require an onset date and time if occurred within 24 hrs of arrival to the ED Aortic Dissection and Rupture; Neurologic impairment; Cardiopulmonary Arrest; Endotracheal Intubation; Insertion or Replacement of Mechanical Circulatory Assist Device Medical History No known health problems Social History Social History Housing: Apartment Patient Tobacco Use Status: Current everyday Tobacco user Cigarettes Per Day: 15 Smoked in Last 30 Days: Yes e-Cigarette/Vaping Use: Never Used Second Hand Smoke Exposure: No Use of substances other than those prescribed or required for medical reasons: No Substance Use Type: Marijuana Advance Directives: No Advance Directives Information Provided: Yes service: No Current occupational status: employed Current occupation: [employer] Current occupational exposures/hazards: No Cognitive needs: No Hearing needs: No Vision needs: No Physical Exam ED Vital Signs: Vital Signs - 24 hr 05/07/23 08:47 05/07/23 12:15 05/07/23 15:40 Temperature 96.9 F 98.9 F Pulse Rate 93 69 81 Respiratory Rate 20 20 16 Blood Pressure 137/73 112/69 126/70 Pulse Oximetry 96 95 97 Oxygen Delivery Method Room Air Room Air Room Air BMI result Body Mass Index 31.1 Const General: cooperative, no acute distress, alert and awake Nutritional Appearance: well nourished Orientation/consciousness: patient oriented x3 Limitations: no limitations HENMT Head: Yes normal to inspection and Yes atraumatic Ears: hearing grossly normal bilaterally and external ears normal General nose exam: Normal external nose present, no nasal discharge noted and no epistaxis Face and sinus: Yes normal facial exam, No abrasion and No laceration Mouth: Normal oral and palatal mucosa present, no drooling and no muffled voice Eyes General: appearance normal, both eyes and all related structures Periorbital: periorbital findings normal Eyelids: Yes eyelids normal Conjunctivae: conjunctivae normal Pupils: Equal, round and reactive pupils present EOM: EOMs intact bilaterally Neck Neck: Yes normal visual inspection, Yes full ROM and Yes no lymphadenopathy Chest Chest palpation & inspection: normal inspection of the chest Resp Effort & Inspection: normal respiratory effort and able to speak in complete sentences GI Inspection: Yes normal to inspection Palpation (GI): Soft to palpation, not firm, Tenderness to palpation present (GI) in the RUQ, no guarding and not rigid Neuro General: patient oriented x3 and moves all extremities Cranial nerves: Yes Equal, round and reactive pupils present Cognition (Neuro): normal cognition Motor exam (neuro): 5/5 motor strength present throughout Sensory Exam: Normal double simultaneous stimulation for sensation Coordination: [id number] test normal Extrem General: Yes normal to inspection, Yes full ROM and Yes capillary refill normal Psych Appearance: grossly normal Mental Status: mental status grossly normal Affect: normal affect Attitude: cooperative Thought process: Normal thought process present Thought content: Normal thought content present Insight: Good insight present (Psych) Medications Administered Discontinued Medications Generic Name Dose Route Start Last Admin Trade Name Tess PRN Reason Stop Dose Admin Al Hydroxide/Mg Hydroxide 15 ml 05/07/23 09:06 05/07/23 09:51 Magnesium Hydrox/Alum Hydrox 30 Ml Oral.Susp PO 05/07/23 09:07 15 ml ONCE ONE Administration Diatrizoate Meglum/Diatrizoate Sod 90 ml 05/07/23 13:36 05/07/23 13:36 Diatrizoate Meglumine, Sodium 30 Ml Solution PO 05/07/23 13:37 90 ml ONCE ONE Administration Sodium Chloride 1,000 mls @ 999 mls/hr 05/07/23 13:45 05/07/23 15:22 Ns IV 05/07/23 15:45 999 mls/hr .Q1H1M ABY Administration Iohexol 85 ml 05/07/23 10:06 05/07/23 10:07 Iohexol 350 Mg/Ml 100 Ml Infus..Btl IV 05/07/23 10:07 85 ml ONCE ONE Administration Iohexol 85 ml 05/07/23 13:35 05/07/23 13:35 Iohexol 350 Mg/Ml 100 Ml Infus..Btl IV 05/07/23 13:36 85 ml ONCE ONE Administration Morphine Sulfate 4 mg 05/07/23 09:06 05/07/23 09:53 Morphine Sulfate 4 Mg/Ml Cartridge IVPUSH 05/07/23 09:07 4 mg ONCE ONE Administration Protocol Morphine Sulfate 4 mg 05/07/23 15:25 05/07/23 15:28 Morphine Sulfate 4 Mg/Ml Cartridge IVPUSH 05/07/23 15:26 4 mg ONCE ONE Administration Protocol Ondansetron HCl 4 mg 05/07/23 09:06 05/07/23 09:55 Ondansetron Hcl 4 Mg/2 Ml Vial IVPUSH 05/07/23 09:07 4 mg ONCE ONE Administration Pantoprazole Sodium 40 mg 05/07/23 09:06 05/07/23 10:02 Pantoprazole Sodium 40 Mg/10 Ml Vial IVPUSH 05/07/23 09:07 40 mg ONCE ONE Administration Medical Decision Making Medical Decision Making MDM Narrative: Patient is a 33 year old assigned male at with no reported medical history presenting to the emergency department today with abdominal pain, nausea, and vomiting. Patient's physical exam was as noted in the physical exam portion of this note. Patient's blood work was unremarkable. Patient's urine showed no acute process. Patient's abdomen/pelvis CT showed a possible SBO. I consulted with the surgical team who recommended repeating the CT scan with PO contrast. CT abd/pelvis with PO contrast showed an enteritis causing a small bowel obstruction. I again consulted the surgical team who recommended the patient be NPO, bowel rest, admitted to the medical service, surgical consult, and have a KUB done tomorrow to evaluate if the contrast has advanced. I spoke with the hospitalist team who agreed to admission. Given the patient was given 2 doses of IV contrast within less than 24 hours, 2 liters of NS was infused. I explained my physical exam findings as well as all test results to the patient. I answered all questions asked by the patient. Patient verbalized agreement and understanding with this treatment plan and admission. Differential Diagnosis Differential Diagnoses: The differential diagnosis associated with the presentation includes Small bowel obstruction Enteritis Inflammatory bowel Abdominal pain Nausea Vomiting Admission/Observation Consideration of admission/observation: Escalation of care including admission/observation considered Admitted. Consult Healthcare Provider Management of the patient was discussed with: Hospitalist (agreed to admission) and Heel Blacker (spoke with the general surgery team as noted in the MDM Rationale portion of this note.) Lab Data [facility] Lab Attestation statement: I reviewed the patient's lab results. My interpretation of these studies and their corresponding values is that they are grossly normal. 05/07/23 08:52 05/07/23 08:52 Labs: Lab Results 05/07/23 05/07/23 Range/Units 08:52 10:05 WBC 6.1 (4.8-10.8) X10*3/uL RBC 5.26 (4.60-5.80) X10*6/uL Hgb 14.4 (14.0-18.0) g/dl Hct 42.6 (42.0-52.0) % MCV 81.0 (80.0-98.0) fL MCH 27.4 (27.0-33.0) pg MCHC 33.8 (31.0-36.0) g/dl RDW 12.8 (11.0-16.0) % Plt Count 232 D (160-400) X10*3/uL MPV 9.4 (9.4-12.4) fL Immature Gran % (Auto) 0.2 (0.0-0.4) % Neut % (Auto) 62.9 (45-73) % Lymph % (Auto) 24.0 (20-40) % [place] % (Auto) 11.9 H (2-11) % Eos % (Auto) 0.5 (0-4) % Baso % (Auto) 0.5 (0-2) % Lymph # (Auto) 1.5 (1.2-4.9) X10*3/uL [place] # (Auto) 0.7 (0.1-1.2) X10*3/uL Eos # (Auto) 0.0 (0.0-0.4) X10*3/uL Baso # (Auto) 0.0 (0.0-0.2) X10*3/uL Abs Immat Gran (auto) 0.01 (0.00-0.03) X10*3/uL Absolute Neuts (auto) 3.8 (2.0-8.3) x10*3/uL Absolute Nucleated RBC 0.000 (0.0-0.012) X10*3/uL Nucleated RBC % (auto) 0.0 (0.0-0.2) /100WBC Sodium 139 (135-145) mmol/L Potassium 4.0 (3.3-5.1) mmol/L Chloride 103 (96-108) mmol/L Carbon Dioxide 28 (22-29) mmol/L Anion Gap 12 (12-20) BUN 9 (9-16) mg/dL Creatinine 0.87 (0.5-1.4) mg/dL Estim Creat Clear Calc 147.6 Estimated GFR > 60 Random Glucose 99 (60-115) mg/dL Calcium 9.2 (8.4-10.2) mg/dL Total Bilirubin 1.4 H (0.0-1.0) mg/dL Direct Bilirubin 0.5 (0.0-0.5) mg/dL AST 15 (5-37) U/L ALT 15 (0-40) U/L Alkaline Phosphatase 60 (39-117) U/L Total Protein 7.2 (6.5-8.0) g/dL Albumin 4.1 (3.5-5.0) g/dL Lipase 20 (8-78) U/L COVID-19 (MABLE) Negative (Negative) COVID-19 Clin Com See Note Influenza Type A (BHARATHI) Negative (Negative) Influenza Type B (BHARATHI) Negative (Negative) Influenza A & B Note See Note Independent Interpretation I performed an independent interpretation of an: CT Scan Interpretation: My interpretation is in agreement with the radiologist's impression of these imaging studies. EXAMINATION: CT ABDOMEN AND PELVIS WITH CONTRAST CLINICAL INFORMATION: Abdominal pain COMPARISON: CT abdomen pelvis June 26, 2021 TECHNIQUE: Multidetector volumetric images were obtained from the superior aspect of the liver through the pubic symphysis following administration 85 mL of Omnipaque 350 intravenous contrast. Sagittal and coronal reformatted images were obtained on the technologist's workstation. Oral contrast: No This CT examination was performed using dose optimization techniques as appropriate, variously including the following: *Automated exposure control *Adjustment of mA and/or kV according to patient size (this includes techniques or standardized protocols for targeted exams where dose is matched to indication/reason for exam; i.e. extremities or head) *Use of iterative reconstruction technique DLP: 746 mGy-cm FINDINGS: Visualized lung bases are well aerated. The liver is normal in size. The gallbladder is normal in appearance. The pancreas, spleen and adrenal glands are unremarkable. Symmetrically enhancing kidneys. No hydronephrosis of either kidney. The stomach is relatively decompressed. Loops of small bowel demonstrate mild diffuse dilatation with diffuse circumferential mucosal thickening involving the mid and distal small bowel. There are scattered air-fluid levels noted within small bowel. Small bowel measures up to 4.2 cm in maximum dimension. Distal small bowel demonstrates circumferential wall thickening but is not dilated. A well-defined transition zone is not identified. The colon is normal in caliber demonstrating a normal amount of stool and air. There is mild colonic diverticulosis without CT evidence to suggest active diverticulitis. There is a mild amount of free intra-abdominal fluid with a small amount of free fluid also noted within the pelvis. Normal caliber abdominal aorta. No retroperitoneal lymphadenopathy. The bladder is normal in appearance. The prostate gland is normal in size. No inguinal lymphadenopathy. No acute osseous abnormality. CT/CT abdomen pelvis w IV con IMPRESSION: 1. Diffuse dilatation of the mid and distal small bowel with diffuse circumferential mucosal thickening. A well-defined transition zone is not identified. There is a mild amount of free intra-abdominal fluid. Findings may be secondary to an inflammatory process of distal small bowel resulting in a partial small bowel obstruction. An infectious process is also within the differential. Clinical correlation is recommended. 2. Mild colonic diverticulosis without CT evidence to suggest active diverticulitis. Fleischner guidelines were followed. Dictated By: Germain Gonsalez MD Signed By: Electronically signed by Germain Gonsalez MD 05/07/23 1027 EXAMINATION: CT ABDOMEN AND PELVIS WITH CONTRAST CLINICAL INFORMATION: Dilated mid and distal small bowel loops. COMPARISON: None available. TECHNIQUE: Multidetector volumetric images were obtained from the superior aspect of the liver through the pubic symphysis following administration 85 mL of Omnipaque 350 intravenous contrast. Oral contrast was administered just before patient was placed supine and scanned. Sagittal and coronal reformatted images were obtained on the technologist's workstation. Oral contrast: No This CT examination was performed using dose optimization techniques as appropriate, variously including the following: *Automated exposure control *Adjustment of mA and/or kV according to patient size (this includes techniques or standardized protocols for targeted exams where dose is matched to indication/reason for exam; i.e. extremities or head) *Use of iterative reconstruction technique DLP: 772 mGy-cm FINDINGS: LUNG BASES: The visualized lung bases are unremarkable. LIVER, GALLBLADDER, AND BILIARY TREE: The liver is normal in size, shape, and attenuation. No focal hepatic lesion or biliary ductal dilatation is present. The gallbladder is unremarkable with no evidence of radiopaque gallstones, gallbladder wall thickening, or obvious pericholecystic inflammatory changes. PANCREAS: Unremarkable. SPLEEN: Unremarkable. ADRENAL GLANDS: Unremarkable. KIDNEYS AND URETERS: The kidneys are normal in size, shape, and attenuation. No hydronephrosis, hydroureter, or calculi seen. No perinephric stranding. BLADDER: Unremarkable. GASTROINTESTINAL TRACT: There are multiple dilated proximal and mid small bowel loops extending to the midabdomen where there is diffuse mural thickening involving small bowel segments better visualized on early exam without contrast. Also visualized in the present exam on axial CT imaging 57/3 through 69/3. The findings are suspicious for small bowel enteritis. Mild thickening of the distal ileum is also noted. There is minimal fat stranding and fluid collection in the mesentery. Fluid is best visualized on axial image 61/3. There is minimal gas in proximal which with small air-fluid level within the descending and sigmoid colon Appendix is normal caliber. No free air seen. The stomach is nondistended. ABDOMINAL WALL: No significant hernia is appreciated. LYMPH NODES: There are multiple mesenteric lymph nodes largest measuring 8mm. It is best visualized on axial image 44/3. VASCULAR: Unremarkable. PELVIC VISCERA: There is nonspecific air-fluid level within the sigmoid and descending colon likely reactionary changes to small bowel obstruction. There is minimal free fluid. No abnormal pelvic lymph nodes or hernia seen. The prostate gland is normal. OSSEOUS STRUCTURES: No aggressive lytic or sclerotic process seen. CT/CT abdomen pelvis w IV con IMPRESSION: Multiple dilated proximal and mid small bowel loops into the midabdomen with mural thickening involving some of nonopacified loops with mild fat stranding and small fluid collection in the mesentery. The above findings are suggestive of small bowel enteritis resulting in obstruction. No free air seen. There are multiple mesenteric lymph nodes largest measuring 8mm. Fleischner guidelines were followed. Dictated By: Hari Beck MD Signed By: Electronically signed by Hari Beck MD 05/07/23 1457 Radiology Impression Discussion of test interpretation with radiology: I have reviewed the radiologist's reading. Critical Care Time Critical Care Time Critical Care Time: Yes Total Critical Care Time: 55 Attestation: I spent 55 minutes of Critical Care Time with this patient. This does not include time spent on separately reported billable procedures. Discharge Plan Discharge Clinical Impression: SBO (small bowel obstruction), Enteritis, Nausea & vomiting Patient Disposition: Admitted As Inpatient
[2023-05-07 08:58] LABS: MANUAL DIFF FLAG NO
[2023-05-07 09:00] LABS: Basophils Percent Auto 0.5 % (0-2); Eosinophils Percent Auto 0.5 % (0-4); Hematocrit 42.6 % (42.0-52.0); Hemoglobin 14.4 g/dl (14.0-18.0); Imm Gran Abs Auto 0.01 X10*3/uL (0.00-0.03); Imm Gran Pct Auto 0.2 % (0.0-0.4); Lymphocytes Absolute Auto 1.5 X10*3/uL (1.2-4.9); Mean Corpuscular HGB Conc 33.8 g/dl (31.0-36.0); Mean Corpuscular Hemoglobin 27.4 pg (27.0-33.0); Mean Platelet Volume 9.4 fL (9.4-12.4); Monocytes Absolute Auto 0.7 X10*3/uL (0.1-1.2); Monocytes Percent Auto 11.9 % (2-11); Neutrophils Absolute Auto 3.8 x10*3/uL (2.0-8.3); Neutrophils Percent Auto 62.9 % (45-73); Platelet Count 232 X10*3/uL (160-400); Red Blood Count 5.26 X10*6/uL (4.60-5.80); Red Cell Distribution Width 12.8 % (11.0-16.0); White Blood Count 6.1 X10*3/uL (4.8-10.8)
[2023-05-07 09:14] LABS: Alanine Aminotransferase 15 U/L (0-40); Albumin Level 4.1 g/dL (3.5-5.0); Alkaline Phosphatase 60 U/L (39-117); Anion Gap 12 (12-20); Aspartate Amino Transferase 15 U/L (5-37); Bilirubin Direct 0.5 mg/dL (0.0-0.5); Bilirubin Total 1.4 mg/dL (0.0-1.0); Blood Urea Nitrogen 9 mg/dL (9-16); Calcium 9.2 mg/dL (8.4-10.2); Carbon Dioxide 28 mmol/L (22-29); Chloride 103 mmol/L (96-108); Creatinine Clr Calc Pharmacy 147.6; Estimated Glomerular Filt Rate > 60; Glucose Random 99 mg/dL (60-115); Lipase 20 U/L (8-78); Sodium 139 mmol/L (135-145); Total Protein 7.2 g/dL (6.5-8.0)
[2023-05-07] MEDS: Magnesium Hydrox/Alum Hydrox 30 ML ORAL.SUSP 15 ML PO (09:51)
[2023-05-07] MEDS: Morphine Sulfate 4 MG/ML CARTRIDGE IVPUSH ×2 (09:53→15:28)
[2023-05-07] MEDS: ondansetron HCL 4 MG/2 ML VIAL IVPUSH (09:55)
[2023-05-07] MEDS: Pantoprazole Sodium 40 MG/10 ML VIAL IVPUSH (10:02)
[2023-05-07] MEDS: iohexoL 350 MG/ML 100 ML INFUS..BTL 85 ML IV ×2 (10:07→13:35)
--- NOTE | 2023-05-07 10:21 | PC.NURSE ---
pt a&o x4, pleasant, calm, and cooperative. pt reporting 6/10 pain when laying down and 9/10 pain when standing/with movement. pt sts pain started saturday. 20G IV placed to LAC by Swish. CT scan completed and pt medicated per jun. call casas within pt reach. plan of care ongoing.
[2023-05-07 10:25] LABS: COVID-19 Test Negative (Negative); IDNOW Serial# 152EDE1D
[2023-05-07 10:36] LABS: IDNOW Serial# 08D9AD1C; Influenza A Negative (Negative); Influenza B2 Negative (Negative)
--- NOTE | 2023-05-07 11:34 | PC.NURSE ---
Assumed care of patient at 1100, patient is resting on stretcher, respirations even and unlabored. Per patient his pain has slightly improved since this morning. He offers no complaints at this time. Plan to do oral contrast CT per AMERICO Zuniga
[2023-05-07 12:15] VITALS: BP 112/69; PULSE 69; RESP 20; O2SAT 95
[2023-05-07] MEDS: Diatrizoate Meglumine, Sodium 30 ML SOLUTION 90 ML PO (13:36)
[2023-05-07] MEDS: 0.9 % Sodium Chloride 1,000 ML 999 ML IV ×2 (13:39→15:22)
--- NOTE | 2023-05-07 14:41 | PC.NURSE ---
Fluids still running, pt endorses 4/10 discomfort in abdomen. Pt requesting something to drink, educated that he has to wait until his CT scan is back. Pt agreeable
--- NOTE | 2023-05-07 15:21 | PHA.MEDREC ---
Pharmacy Consult ? Medication Reconciliation Pharmacy has completed the medication reconciliation.Patient reports no medication at home. Paula Chase CPhT
--- NOTE | 2023-05-07 15:33 | PC.NURSE ---
PT reports 12/30 upper abdominal pain, KF made aware, medicated per MAR, second liter of fluids running. Pending admission at this time. Call casas placed within reach.
[2023-05-07 15:40] VITALS: BP 126/70; PULSE 81; RESP 16; TEMP 37.2; O2SAT 97
--- NOTE | 2023-05-07 16:44 | P.HPHOSP_ITS ---
<Statement entered by Uri Bautista MD - 05/15/23 15:57> The patient was seen and evaluated with Flor Cox NP. I agree with her note, assessment and plan with the following. In summary, a 33-year-old man with abdominal pain and diarrhea admitted with enteritis, possible small-bowel obstruction per images. Acute gastroenteritis with concern over possible SBO NPO, bowel rest IV fluids IV Pepcid advance diet as tolerated Rest of evaluations by PORTER LUGGAGE note. History of Present Illness Date of Service: 05/07/23 Chief Complaint: abdominal pain, diarrhea 33-year-old man presented to the ER with complaints of abdominal pain and diarrhea that started on Saturday after picking up a gas station sandwich and his route to [place] for work. He reports he has been having watery stools since then, has still been trying to eat but feels bloated after meals. He reports yesterday he ate too much and he vomited pretty much right after he consumed food. He denied any recent travel, illness, sick contacts, fever, chills, bloody stool. In the ER, abdominal CT showed findings suggestive of small-bowel enteritis resulting in obstruction without free air. Patient having no vomiting episodes however. Labs all within acceptable limits, vital signs stable. Review of Systems 2 Review of Systems: Denies any recent fever chills or decrease in appetite respiratory denies any shortness or cough cardiovascular denied chest pain gastrointestinal denies any dysphagia abdominal pain nausea vomiting or diarrhea genitourinary denies any dysuria frequency or hematuria musculoskeletal denies any joint pain or swelling neuropsych denies any weakness or seizures all other systems reviewed are negative [facility] Medical History No known health problems Social History Housing: Apartment Patient Tobacco Use Status: Current everyday Tobacco user Cigarettes Per Day: 15 Smoked in Last 30 Days: Yes e-Cigarette/Vaping Use: Never Used Second Hand Smoke Exposure: No Use of substances other than those prescribed or required for medical reasons: No Substance Use Type: Marijuana Advance Directives: No Advance Directives Information Provided: Yes service: No Current occupational status: employed Current occupation: [employer] Current occupational exposures/hazards: No Cognitive needs: No Hearing needs: No Vision needs: No Meds Allergies Allergy/AdvReac Type Severity Reaction Status Date / Time sertraline AdvReac Intermediate Drowsy Verified 05/06/23 15:19 Active Medications: Current Medications Acetaminophen (Acetaminophen 325 Mg Tablet) 650 mg PO Q6H PRN PRN Reason: Pain, Mild (Pain Scale 1-3) Dextrose/Sodium Chloride (D5ns) 1,000 mls @ 100 mls/hr IVCONT .Q10H ABY Ondansetron HCl (Ondansetron Hcl 4 Mg/2 Ml Vial) 4 mg IVPUSH Q8H PRN PRN Reason: Nausea and Vomiting Sodium Chloride (0.9 % Sodium Chloride Flush 3 Ml Syringe) 3 ml IVFLUSH QSHIFT ABY Home Medications Medication Instructions Recorded Confirmed Last Taken Type No Known Home Meds 05/07/23 05/07/23 Unknown History Physical Exam 2 Vital Signs and Narrative: Vital Signs: Last Vital Signs Temp 98.9 F 05/07/23 15:40 Pulse 81 05/07/23 15:40 Resp 16 05/07/23 15:40 BP 126/70 05/07/23 15:40 Pulse Ox 97 05/07/23 15:40 O2 Del Method Room Air 05/07/23 15:40 BMI result Body Mass Index 31.1 Appearing in no acute distress head is normocephalic atraumatic eyes pupils are PERRLA sclera is anicteric mouth throat mucous membranes are intact and moist neck is supple no lymphadenopathy, no JVD noted lung sounds are clear to auscultation heart regular rate rhythm, clear S1, S2 positive bowel sounds, abdomen is soft, mildly tender to the epigastrium neuro patient is alert x3, no focal deficits Results Labs 05/07/23 08:52 05/07/23 08:52 Labs: Laboratory Results - last 24 hr 05/07/23 05/07/23 08:52 10:05 MCV 81.0 MCH 27.4 MCHC 33.8 RDW 12.8 Plt Count 232 D MPV 9.4 Immature Gran % (Auto) 0.2 Neut % (Auto) 62.9 Lymph % (Auto) 24.0 [place] % (Auto) 11.9 H Eos % (Auto) 0.5 Baso % (Auto) 0.5 Lymph # (Auto) 1.5 [place] # (Auto) 0.7 Eos # (Auto) 0.0 Baso # (Auto) 0.0 Abs Immat Gran (auto) 0.01 Absolute Neuts (auto) 3.8 Absolute Nucleated RBC 0.000 Nucleated RBC % (auto) 0.0 Anion Gap 12 Estim Creat Clear Calc 147.6 Estimated GFR > 60 Random Glucose 99 Calcium 9.2 Total Bilirubin 1.4 H Direct Bilirubin 0.5 AST 15 ALT 15 Alkaline Phosphatase 60 Total Protein 7.2 Albumin 4.1 Lipase 20 COVID-19 (MABLE) Negative COVID-19 Clin Com See Note Influenza Type A (BHARATHI) Negative Influenza Type B (BHARATHI) Negative Influenza A & B Note See Note Imaging Radiologist's Impressions: Impressions Abdomen/Pelvis CT 05/07/23 10:07 IMPRESSION: 1. Diffuse dilatation of the mid and distal small bowel with diffuse circumferential mucosal thickening. A well-defined transition zone is not identified. There is a mild amount of free intra-abdominal fluid. Findings may be secondary to an inflammatory process of distal small bowel resulting in a partial small bowel obstruction. An infectious process is also within the differential. Clinical correlation is recommended. 2. Mild colonic diverticulosis without CT evidence to suggest active diverticulitis. Fleischner guidelines were followed. Abdomen/Pelvis CT 05/07/23 13:41 IMPRESSION: Multiple dilated proximal and mid small bowel loops into the midabdomen with mural thickening involving some of nonopacified loops with mild fat stranding and small fluid collection in the mesentery. The above findings are suggestive of small bowel enteritis resulting in obstruction. No free air seen. There are multiple mesenteric lymph nodes largest measuring 8mm. Fleischner guidelines were followed. Assessment and Plan (1) Nausea & vomiting: Status: Acute (2) Enteritis: Status: Acute Plan 33-year-old man admitted with enteritis, possible small-bowel obstruction after eating a sandwich at a gas station on Saturday. He has had continued diarrhea since then. Enteritis. Possible small bowel obstruction but no vomiting only diarrhea Reports eating a gas station sandwich on Saturday when symptoms started NPO, bowel rest IV fluids IV Pepcid Obesity. BMI 31.1 Discussed importance of weight management as this may be contributing to worsening of other comorbidities DVT prophylaxis early ambulation Full code Observation Quality Stroke Does the patient have a stroke diagnosis?: No VTE Prior VTE?: No VTE Risk Level:: Medical - moderate - high VTE Device Contraindication: Treatment Not Indicated VTE Drug Contraindication: Treatment Not Indicated
[2023-05-07] MEDS: Dextrose 5 % and 0.9 % NaCl 1,000 ML 100 ML IVCONT (18:36)
[2023-05-07] MEDS: Ketorolac Tromethamine 15 MG/ML VIAL IVPUSH (20:38)
[2023-05-07] MEDS: Famotidine/PF 20 MG/2 ML VIAL IVPUSH (20:38)
[2023-05-07] MEDS: Nicotine Polacrilex 2 MG GUM BUCCAL (20:40)
--- NOTE | 2023-05-07 21:00 | PC.NURSE ---
PT passed large amount of watery stools (GI panel and CDiff sent). C/o 11/29 abd pain,(see MAR, effect pending). Call casas within reach. Awaiting bed assignment.
[2023-05-07 21:50] LABS: CDiff Gene PCR NEGATIVE (Negative)
[2023-05-08] VITALS (8 sets, daily range): BP systolic 114–130; BP diastolic 59–77; PULSE 64–77; RESP 14–18; TEMP 36.2–37.4; O2SAT 97–99
--- NOTE | 2023-05-08 03:10 | PC.NURSE ---
Assumed care of pt. Pt lying on stretcher with cell phone, no acute distress at this time. Pending admission bed.
[2023-05-08] MEDS: Dextrose 5 % and 0.9 % NaCl 1,000 ML 100 ML IVCONT ×3 (03:48→23:20)
[2023-05-08 06:16] LABS: MANUAL DIFF FLAG NO
[2023-05-08 06:21] LABS: Basophils Percent Auto 0.5 % (0-2); Eosinophils Absolute Auto 0.1 X10*3/uL (0.0-0.4); Eosinophils Percent Auto 2.5 % (0-4); Hematocrit 37.1 % (42.0-52.0); Hemoglobin 12.5 g/dl (14.0-18.0); Imm Gran Abs Auto 0.01 X10*3/uL (0.00-0.03); Imm Gran Pct Auto 0.2 % (0.0-0.4); Lymphocytes Absolute Auto 1.3 X10*3/uL (1.2-4.9); Lymphocytes Percent Auto 29.3 % (20-40); Mean Corpuscular HGB Conc 33.7 g/dl (31.0-36.0); Mean Corpuscular Hemoglobin 27.4 pg (27.0-33.0); Mean Corpuscular Volume 81.4 fL (80.0-98.0); Mean Platelet Volume 9.6 fL (9.4-12.4); Monocytes Absolute Auto 0.6 X10*3/uL (0.1-1.2); Monocytes Percent Auto 14.7 % (2-11); Neutrophils Absolute Auto 2.3 x10*3/uL (2.0-8.3); Neutrophils Percent Auto 52.8 % (45-73); Platelet Count 203 X10*3/uL (160-400); Red Blood Count 4.56 X10*6/uL (4.60-5.80); Red Cell Distribution Width 12.5 % (11.0-16.0); White Blood Count 4.3 X10*3/uL (4.8-10.8)
[2023-05-08] MEDS: Famotidine/PF 20 MG/2 ML VIAL IVPUSH ×2 (08:51→21:17)
[2023-05-08] MEDS: 0.9 % Sodium Chloride Flush 3 ML SYRINGE IVFLUSH ×2 (08:51→23:23)
[2023-05-08 09:19] LABS: Adenovirus F 40/41 Not Detected (Not Detect.); Astrovirus Not Detected (Not Detect.); Campylobacter Not Detected (Not Detect.); Cryptosporidium Not Detected (Not Detect.); Cyclospora cayetanensis Not Detected (Not Detect.); E. coli EAEC Not Detected (Not Detect.); E. coli EPEC Not Detected (Not Detect.); E. coli ETEC Not Detected (Not Detect.); E. coli STEC Not Detected (Not Detect.); Entamoeba histolytica Not Detected (Not Detect.); Giardia lamblia Not Detected (Not Detect.); Norovirus GI/GII Not Detected (Not Detect.); Plesiomonas shigelloides Not Detected (Not Detect.); Rotavirus A Not Detected (Not Detect.); Salmonella Not Detected (Not Detect.); Sapovirus Not Detected (Not Detect.); Shigella sp./EIEC Not Detected (Not Detect.); Vibrio Not Detected (Not Detect.); Vibrio Cholerae Not Detected (Not Detect.); Yersinia enterocolitica Not Detected (Not Detect.)
--- NOTE | 2023-05-08 09:50 | PC.NURSE ---
PT AMB (I) GAIT STEADY TO BATHROOM AND BTB. PT VOIDED AND STATED THAT HE HAD A WATERY BM. PT REMAINS NPO.
[2023-05-08] MEDS: Ketorolac Tromethamine 15 MG/ML VIAL IVPUSH (09:58)
--- NOTE | 2023-05-08 10:00 | PC.NURSE ---
PT SEEN BY [facility] MUSIC PUBLICIST ([place]) PT AWARE OF PLAN OF CARE.
--- NOTE | 2023-05-08 10:07 | PC.NURSE ---
PT TO [facility] FOR KUB. AMB (I) GAIT STEADY.
--- NOTE | 2023-05-08 10:16 | MHC.CM.PN ---
PT REPORTS HE LIVES WITH HIS AND KIDS HE IS INDEPENDENT WITH CARE AND HAS NO DME OR SERVICES PT SAYS HE SEES A PCP AT [facility] [place] HE DOES NOT HAVE A HCP AND DECLINES TO COMPLETE ONE TODAY OBSERVATION NOTICE DELIVERED DCP: HOME NO SERVICES VIA PRIVATE TRANSPORT
--- NOTE | 2023-05-08 11:10 | P.PNIM_ITS ---
Subjective Subjective Date of Service: 05/08/23 Review of Systems Follow up SBO, enteritis Feeling better, still with diarrhea Physical Exam 2 Vital Signs: Vital Signs: Last Vital Signs Temp 98.0 F 05/08/23 08:58 Pulse 74 05/08/23 08:58 Resp 14 05/08/23 08:58 BP 114/66 05/08/23 08:58 Pulse Ox 97 05/08/23 08:58 O2 Del Method Room Air 05/08/23 08:58 BMI result Body Mass Index 31.1 Appearing in no acute distress lung sounds are clear to auscultation heart regular rate rhythm, clear S1, S2 positive bowel sounds, abdomen is soft, nontender neuro patient is alert x3, no focal deficits Objective Data Active Medications Acetaminophen (Acetaminophen 325 Mg Tablet) 650 mg PO Q6H PRN PRN Reason: Pain, Mild (Pain Scale 1-3) Famotidine (Famotidine/Pf 20 Mg/2 Ml Vial) 20 mg IVPUSH BID [facility] Last Admin: 05/08/23 08:51 Dose: 20 mg Documented By: JOSE Dextrose/Sodium Chloride (D5ns) 1,000 mls @ 100 mls/hr IVCONT .Q10H [facility] Last Admin: 05/08/23 03:48 Dose: 100 mls/hr Documented By: ROBYN Ketorolac Tromethamine (Ketorolac Tromethamine 15 Mg/Ml Vial) 15 mg IVPUSH Q6H PRN PRN Reason: Pain, Moderate(Pain Scale 4-6) Last Admin: 05/08/23 09:58 Dose: 15 mg Documented By: CHANDRIKA Nicotine Polacrilex (Nicotine Polacrilex 2 Mg Gum) 2 mg BUCCAL Q2H PRN PRN Reason: Nicotine Cravings Last Admin: 05/07/23 20:40 Dose: 2 mg Documented By: PAOLOINJ Ondansetron HCl (Ondansetron Hcl 4 Mg/2 Ml Vial) 4 mg IVPUSH Q8H PRN PRN Reason: Nausea and Vomiting Sodium Chloride (0.9 % Sodium Chloride Flush 3 Ml Syringe) 3 ml IVFLUSH QSHIFT [facility] Last Admin: 05/08/23 08:51 Dose: 3 ml Documented By: JOSE Labs 05/08/23 05:58 05/08/23 05:58 Labs: Laboratory Results - last 24 hr 05/07/23 05/08/23 20:47 05:58 MCV 81.4 MCH 27.4 MCHC 33.7 RDW 12.5 Plt Count 203 MPV 9.6 Immature Gran % (Auto) 0.2 Neut % (Auto) 52.8 Lymph % (Auto) 29.3 [place] % (Auto) 14.7 H Eos % (Auto) 2.5 Baso % (Auto) 0.5 Lymph # (Auto) 1.3 [place] # (Auto) 0.6 Eos # (Auto) 0.1 Baso # (Auto) 0.0 Abs Immat Gran (auto) 0.01 Absolute Neuts (auto) 2.3 Absolute Nucleated RBC 0.000 Nucleated RBC % (auto) 0.0 Magnesium Cancelled Stl C. cayetanensis PCR Not Detected Stool Rotavirus A PCR Not Detected Stl Adenov F 40/41 PCR Not Detected Stool Astrovirus (PCR) Not Detected Stool Campylobacter PCR Not Detected Stool Cryptosporidium PCR Not Detected Stl Sh Tox Pr E STEC PCR Not Detected Stool E coli O157 PCR Not applicable Stl Enterotoxigenic E PCR Not Detected Stool EPEC (PCR) Not Detected Stool EAEC (PCR) Not Detected Stl E. histolytica PCR Not Detected Stool Giardia Lamblia PCR Not Detected Stl P. shigelloides PCR Not Detected Stool Salmonella PCR Not Detected Stool Sapovirus (PCR) Not Detected Stl Shigella/EIEC PCR Not Detected St Y.enterocolitica PCR Not Detected Stool Vibrio (PCR) Not Detected Stl Vibrio cholerae PCR Not Detected Stl Norovirus GI/GII PCR Not Detected C. difficile Tox B Gene NEGATIVE Assessment and Plan (1) Enteritis: Status: Acute Plan 33-year-old man admitted with enteritis, possible small-bowel obstruction after eating a sandwich at a gas station on Saturday. He has had continued diarrhea since then. Enteritis. small bowel obstruction but no vomiting only diarrhea stool studies and cdiff neg Reports eating a gas station sandwich on Saturday when symptoms started advance diet to clears IV fluids IV Pepcid Repeat KUB today showing improved small bowel distension but oral contrast in the descending colon suggestive of partial small-bowel obstruction rec GI consult Obesity. BMI 31.1 Discussed importance of weight management as this may be contributing to worsening of other comorbidities Tobacco use Nicotine replacement therapy Discussed importance of smoking cessation DVT prophylaxis early ambulation Attending Dr. Saez Full code Observation Quality Stroke Does the patient have a stroke diagnosis?: No VTE Prior VTE?: No VTE Risk Level:: Medical - moderate - high VTE Device Contraindication: Treatment Not Indicated VTE Drug Contraindication: Treatment Not Indicated
[2023-05-08 13:24] LABS: Alanine Aminotransferase 14 U/L (0-40); Albumin Level 3.4 g/dL (3.5-5.0); Alkaline Phosphatase 48 U/L (39-117); Anion Gap 12 (12-20); Aspartate Amino Transferase 14 U/L (5-37); Bilirubin Total 0.8 mg/dL (0.0-1.0); Blood Urea Nitrogen 6 mg/dL (9-16); Calcium 8.4 mg/dL (8.4-10.2); Carbon Dioxide 24 mmol/L (22-29); Chloride 109 mmol/L (96-108); Estimated Glomerular Filt Rate > 60; Glucose Random 86 mg/dL (60-115); Potassium 3.6 mmol/L (3.3-5.1); Sodium 141 mmol/L (135-145); Total Protein 5.9 g/dL (6.5-8.0)
[2023-05-09 04:00] VITALS: BP 110/56; PULSE 73; RESP 18; TEMP 37.4; O2SAT 97
[2023-05-09] MEDS: Acetaminophen 325 MG TABLET 650 MG PO (06:25)
--- NOTE | 2023-05-09 07:34 | P.PNIM_ITS ---
Subjective Subjective Date of Service: 05/09/23 Interval History: 3 diarrgea, no pain n or v Physical Exam 2 Vital Signs: Vital Signs: Last Vital Signs Temp 99.4 F 05/09/23 04:00 Pulse 73 05/09/23 04:00 Resp 18 05/09/23 04:00 BP 110/56 L 05/09/23 04:00 Pulse Ox 97 05/09/23 04:00 O2 Del Method Room Air 05/09/23 04:00 BMI result Body Mass Index 31.1 Objective Data Active Medications Acetaminophen (Acetaminophen 325 Mg Tablet) 650 mg PO Q6H PRN PRN Reason: Pain, Mild (Pain Scale 1-3) Last Admin: 05/09/23 06:25 Dose: 650 mg Documented By: DESTINY Famotidine (Famotidine/Pf 20 Mg/2 Ml Vial) 20 mg IVPUSH BID [facility] Last Admin: 05/08/23 21:17 Dose: 20 mg Documented By: ALEX Dextrose/Sodium Chloride (D5ns) 1,000 mls @ 100 mls/hr IVCONT .Q10H [facility] Last Admin: 05/08/23 23:20 Dose: 100 mls/hr Documented By: DESTINY Ketorolac Tromethamine (Ketorolac Tromethamine 15 Mg/Ml Vial) 15 mg IVPUSH Q6H PRN PRN Reason: Pain, Moderate(Pain Scale 4-6) Last Admin: 05/08/23 09:58 Dose: 15 mg Documented By: CHANDRIKA Nicotine Polacrilex (Nicotine Polacrilex 2 Mg Gum) 2 mg BUCCAL Q2H PRN PRN Reason: Nicotine Cravings Last Admin: 05/07/23 20:40 Dose: 2 mg Documented By: BRIANNA Ondansetron HCl (Ondansetron Hcl 4 Mg/2 Ml Vial) 4 mg IVPUSH Q8H PRN PRN Reason: Nausea and Vomiting Sodium Chloride (0.9 % Sodium Chloride Flush 3 Ml Syringe) 3 ml IVFLUSH QSHIFT [facility] Last Admin: 05/08/23 23:23 Dose: 3 ml Documented By: DESTINY Labs 05/08/23 05:58 05/08/23 05:58 Labs: Laboratory Results - last 24 hr 05/07/23 05/08/23 20:47 05:58 Anion Gap 12 Estim Creat Clear Calc 169.0 Estimated GFR > 60 Random Glucose 86 Calcium 8.4 D Magnesium 2.0 Total Bilirubin 0.8 AST 14 ALT 14 Alkaline Phosphatase 48 Total Protein 5.9 L Albumin 3.4 L Stl C. cayetanensis PCR Not Detected Stool Rotavirus A PCR Not Detected Stl Adenov F 40/41 PCR Not Detected Stool Astrovirus (PCR) Not Detected Stool Campylobacter PCR Not Detected Stool Cryptosporidium PCR Not Detected Stl Sh Tox Pr E STEC PCR Not Detected Stool E coli O157 PCR Not applicable Stl Enterotoxigenic E PCR Not Detected Stool EPEC (PCR) Not Detected Stool EAEC (PCR) Not Detected Stl E. histolytica PCR Not Detected Stool Giardia Lamblia PCR Not Detected Stl P. shigelloides PCR Not Detected Stool Salmonella PCR Not Detected Stool Sapovirus (PCR) Not Detected Stl Shigella/EIEC PCR Not Detected St Y.enterocolitica PCR Not Detected Stool Vibrio (PCR) Not Detected Stl Vibrio cholerae PCR Not Detected Stl Norovirus GI/GII PCR Not Detected Quality Stroke Does the patient have a stroke diagnosis?: No VTE Prior VTE?: No VTE Risk Level:: Medical - moderate - high VTE Device Contraindication: Treatment Not Indicated VTE Drug Contraindication: Treatment Not Indicated
[2023-05-09 07:35] VITALS: BP 121/57; PULSE 70; RESP 18; TEMP 36.8; O2SAT 95
--- NOTE | 2023-05-09 08:54 | PM.EVENT ---
Event Note Date of Service: 05/09/23 Event Note: GI consult dictated CT findings c/w sb enteritis, likely infectious stool tests neg for c diff, gi panel. can use antidiarrheals prn. advance diet Time Spent With Patient Time: Total time managing care of this patient today ____ minutes.
[2023-05-09 09:09] LABS: Anion Gap 11 (12-20); Blood Urea Nitrogen 3 mg/dL (9-16); Calcium 8.8 mg/dL (8.4-10.2); Carbon Dioxide 27 mmol/L (22-29); Chloride 109 mmol/L (96-108); Creatinine Clr Calc Pharmacy 158.6; Estimated Glomerular Filt Rate > 60; Glucose Random 104 mg/dL (60-115); Potassium 3.7 mmol/L (3.3-5.1); Sodium 143 mmol/L (135-145)
[2023-05-09] MEDS: Dextrose 5 % and 0.9 % NaCl 1,000 ML 100 ML IVCONT (09:43)
[2023-05-09] MEDS: Famotidine/PF 20 MG/2 ML VIAL IVPUSH (09:44)
--- NOTE | 2023-05-09 09:49 | PM.DS ---
DS: Providers Provider Date of Service: 05/09/23 Date of admission: 05/07/23 16:41 Date of discharge: 05/09/23 [facility] clinician: Flor Cox Attending physician on admission: Uri Bautista Consults: 05/08/23 11:44 Consult to Gastroenterology Routine Consulting Provider: Aries Soto Reason for consultation: enteritis Attending physician on discharge: [facility] [place] Discharging clinician: Kristin Zamora DS: Diagnosis Discharge Diagnosis (1) Enteritis: Status: Acute DS: Summary Hospital Course Hospital Course: HPI on admission by Flor Cox EMT P on 05/07: Chief Complaint: abdominal pain, diarrhea 33-year-old man presented to the ER with complaints of abdominal pain and diarrhea that started on Saturday after picking up a gas station sandwich and his route to [place] for work. He reports he has been having watery stools since then, has still been trying to eat but feels bloated after meals. He reports yesterday he ate too much and he vomited pretty much right after he consumed food. He denied any recent travel, illness, sick contacts, fever, chills, bloody stool. In the ER, abdominal CT showed findings suggestive of small-bowel enteritis resulting in obstruction without free air. Patient having no vomiting episodes however. Labs all within acceptable limits, vital signs stable. Hospital Course: Pt admitted for further management of SBO due to enteritis. Infectious workup with GI panel and CDIff PCR negative. Treated with IVF and diet gradually advanced with good tolerance. Abd pain resolved. Given immodium while admitted. There was a mild normocytic anemia without any evidence of bleeding. Labs otherwise unremarkable. Seen by GI recmmending above. Will be discharged home with recommendations for bland diet, advance as tolerated. Can take immodium prn. Repeat CBC in 1 week. Time spent discussing smoking cessation with patient: 3 to 10 minutes Status at Discharge Functional status at discharge: independent ambulation Overall status at discharge: patient is progressing back to baseline Time Attestation Discharge coordination time: Greater than 30 minutes Quality: Safe Use of Opioids Does Pt have an Active Cancer Diagnosis on the Problem List?: No Quality: Stroke Does the patient have a stroke diagnosis?: No Physical Exam Vital Signs: Vital Signs: Last Vital Signs Temp 98.2 F 05/09/23 07:35 Pulse 70 05/09/23 07:35 Resp 18 05/09/23 07:35 BP 121/57 L 05/09/23 07:35 Pulse Ox 95 05/09/23 07:35 O2 Del Method Room Air 05/09/23 07:35 BMI result Body Mass Index 31.1 DS: Data Data Completed and Pending Labs on day of discharge: Laboratory Results - last 24 hr 05/08/23 05/09/23 05:58 08:35 Hold Purple Top SEE NOTE Sodium 141 143 Potassium 3.6 3.7 Chloride 109 H 109 H Carbon Dioxide 24 27 Anion Gap 12 11 L BUN 6 L 3 L Creatinine 0.76 0.81 Estim Creat Clear Calc 169.0 158.6 Estimated GFR > 60 > 60 Random Glucose 86 104 Calcium 8.4 D 8.8 Magnesium 2.0 Total Bilirubin 0.8 AST 14 ALT 14 Alkaline Phosphatase 48 Total Protein 5.9 L Albumin 3.4 L Discharge Plan Discharge Anticipated Discharge Date/Time: 05/09/23 12:14 Patient Disposition: Home, Self-Care Discharge Diagnosis: sbo, enteritis Referrals: Cody Howard FNP-BC [Primary Care Provider] - 1 Week Discharge Medications: New loperamide 2 mg tablet 2 mg PO Q6H PRN (Reason: loose stool) Qty: 14 0RF Discharge Orders: Discharge Order (Routine); Ordered 05/09/23 Ordered By: Kristin Zamora Diet: Advance to usual diet Activity on Discharge: As tolerated Stand Alone Forms: Patient Portal Discharge page Other Ambulatory Orders: Complete Blood Count Auto Diff (Routine) Timeframe: 1 Week Facility: [facility] - Location: Laboratory Ordered By: Kristin Zamora Care Plan Goals: Resolve and prevent diarrhea Health Concerns: SBO due to enteritis Plan of Treatment: Treated conservatively for small bowel obstruction due to enteritis (inflammation of small bowel) with copious diarrhea. Treated with IV fluids with gradual advancement of diet. Infectious work up negative. Can continue taking immodium 2mg every 4-6 hours as needed for diarrhea. Recommend bland diet, advance as tolerated. Follow up with PCP. Repeat blood counts in 1 week. Assessment: See above. See discharge summary
--- NOTE | 2023-05-09 10:10 | MHC.CM.PN ---
Patient is discharged to home self care. He has arranged for transportation home.
--- NOTE | 2023-05-09 12:19 | CONS_ITS ---
DATE OF SERVICE: 05/09/2023 REFERRING PHYSICIAN: AMERICO Rogers REASON FOR CONSULTATION: Enteritis. HISTORY OF PRESENT ILLNESS: The patient is a pleasant 33-year-old man, who was admitted to the hospital after presenting to the emergency department on May 07 with abdominal pain. This first began approximately 4 days prior to admission when he developed waxing and waning epigastric pain with nausea and vomiting. The pain was in the epigastric area and was without radiation. He was seen in Urgent Care and given anti-gas treatment, but had recurrent symptoms and presented to the emergency room. He did have 1 episode of nonbloody vomitus and also the day the pain began, he was eating a sandwich from a convenience store, that he thinks might have caused some of his symptoms. He presented to the emergency room where he was afebrile and was evaluated with laboratory studies showing a white count of 6.1, and fairly unremarkable chemistries. Imaging with CT scanning was obtained, which is reviewed. This is interpreted as showing proximal and mid small bowel dilated loops, consistent with enteritis. Stool specimens have been obtained, which have shown no evidence of treatable infectious etiology and are negative for C. diff. The patient denies any prior history of inflammatory bowel disease or obstructive symptoms. He says he did have one previous admission for swollen intestines, possibly related to a viral etiology. PAST MEDICAL HISTORY: He denies other medical or surgical. CURRENT MEDICATIONS: Current medication list is reviewed in the chart. ALLERGIES: SERTRALINE. FAMILY HISTORY: This was reviewed with the patient and is negative for inflammatory bowel disease. SOCIAL HISTORY: He does smoke. He denies significant alcohol intake. REVIEW OF SYSTEMS: SKIN: No pruritus. HEENT: Negative. Cardiopulmonary: No shortness of breath or chest pain. GASTROINTESTINAL: As above. GENITOURINARY: Negative. NEUROPSYCHIATRIC: Negative. PHYSICAL EXAMINATION: GENERAL: Reveals a pleasant male, lying comfortably in bed, is tolerating clear liquid diet. VITAL SIGNS: Reviewed in electronic medical record and are stable. He has been afebrile. SKIN: Anicteric. HEENT: Shows no scleral icterus. NECK: Without lymphadenopathy or thyromegaly. LUNGS: Clear. HEART: Shows a regular rate and rhythm. S1, S2. No murmur. ABDOMEN: Soft and nontender. Bowel sounds are present. No organomegaly is noted. EXTREMITIES: Without edema. LABORATORY DATA AND IMAGING STUDIES: Reviewed. IMPRESSION: Enteritis. His presentation appears consistent with a likely viral gastroenteritis. This may be related to a food ingestion. So far stool testing has shown no evidence of any treatable infectious etiology and he is feeling better since admission with supportive care. At this point, I would recommend advancing his diet and discharging when stable. I do not think he needs endoscopy at this time. He can use antidiarrheals on a p.r.n. basis for his diarrheal symptoms. Thanks for asking me to see him. I will follow him in the hospital with you. MD SANDY Ortega/JUAN / [id number]
[2023-05-09] MEDS: Loperamide HCl 2 MG CAPSULE 4 MG PO (12:43)
== END 2023-05-09 13:57 | disposition home or self-care (01) ==
LOC: HO.ED 15:35 → HO.EDOVER 17:15 → HO.S3 05-08 11:18
PROVIDERS: Physician Assistant Medical; Admitting Provider Nurse Practitioner Acute Care; Emergency Provider Emergency Medicine; PCP Nurse Practitioner Family; Visit Provider Physician Assistant
DX: K56.609 Unspecified intestinal obstruction, unspecified as to partial versus complete obstruction (principal); K52.9 Noninfective gastroenteritis and colitis, unspecified; D64.9 Anemia, unspecified; R10.13 Epigastric pain; R11.2 Nausea with vomiting, unspecified; E66.9 Obesity, unspecified; Z68.31 Body mass index [BMI] 31.0-31.9, adult; Z72.0 Tobacco use; Z11.52 Encounter for screening for COVID-19
CPT/HCPCS: 36415; 74018; 74177; 80048; 80053; 80076; 83690; 83735; 85025; 87493; 87502; 87507; 87635; 96361; 96374; 96375; 96376; 99221; 99285; C9113; J1885; J2270; J2405; Q9967

== ENCOUNTER → 2023-05-07 16:41 | Outpatient (BNV) | payer BC, SELFPAY | PROVIDERS: Admitting Provider Nurse Practitioner Acute Care; Emergency Provider Emergency Medicine; PCP Nurse Practitioner Family; Visit Provider Nurse Practitioner Acute Care | DX: K52.9 Noninfective gastroenteritis and colitis, unspecified (principal) | CPT/HCPCS: 99222; 99232; 99239 ==